=== PATIENT | male | born 1960 | race Caucasian/White ===

== ENCOUNTER 2023-08-05 17:29 | Inpatient (IN) | payer OTHER, SELFPAY ==
--- NOTE | ~2023-08-05 | CT_ITS ---
EXAMINATION: CT guide absc cath placement DATE: 08/09/2023 14:31 INDICATION: Peritoneal abscess TECHNIQUE: The procedure including the risks and benefits was discussed with the patient. Risks discu ssed included bleeding and infection. The patient understood the risks and benefits and agreed to pro ceed. The patient was confirmed to be receiving appropriate antibiotic coverage. The skin overlying the infraumbilical abdomen was prepped and draped in usual sterile fashion. An initial microsoft dynamics ax consultant CT was o btained following administration of 100 mL with Omnipaque-350 intravenous contrast to more clearly de lineate the margins of the fluid collection and the location of the bowels. Anesthetic was administer ed with 1% lidocaine subcutaneously. An 18-gauge trochar needle was inserted into the peritoneal flui d collection utilizing CT guidance. The inner stylette was removed and a J-wire advanced through the needle into the fluid collection with position confirmed by CT. Utilizing Seldinger technique the nee dle was removed over the wire and the tract serially dilated to 10 [place]. A 10 [place] pigtail cathet er was advanced over the wire into the fluid collection in the loop formed and locked with position c onfirmed by CT. The catheter was stitched to the skin with suture. Antibiotic appointment and a steri le dressing were applied. An additional adhesive fixation device was applied. There were no immediate complications. The dose-length product was 236.76 mGy-cm. FINDINGS: CT images demonstrate the catheter within the abscess within the central pelvis. Proximally 40 mL of opaque conley foul-smelling purulent fluid was aspirated for testing. The catheter was then at tached to suction drainage and was draining additional small amount of . Appearing fluid at the concl usion of the procedure IMPRESSION: 1. Successful CT-guided abscess drainage. 2. 40 mL fluid was sent for aerobic and anaerobic cultures. 3. The catheter will be managed by Dr. Santoyo. Reviewed, dictated and finalized at location A.
--- NOTE | ~2023-08-05 | CT_ITS ---
EXAMINATION: CT abdomen pelvis w con DATE: 08/06/2023 01:02 INDICATION: Abdomen pain. TECHNIQUE: Computed tomography (CT) of the abdomen and pelvis was performed with 100 cc Omnipaque 350 intravenous contrast. The dose-length product was 227.18 mGy-cm. Automated exposure control and iter ative reconstruction technique were employed. COMPARISON: None. FINDINGS: Lung bases are unremarkable. Heart size normal. No significant pleural or pericardial effus ion. There is hepatomegaly. The liver, spleen, pancreas, adrenal glands are unremarkable. Small subce ntimeter cyst of the right kidney. There is nonobstructing 7 mm left nephrolithiasis. No hydronephros is. There is atherosclerosis of the aorta without aneurysm. There is thickening of the sigmoid colon with surrounding inflammation and peridiverticular abscess measuring 4.4 cm. No acute osseous abnorma lity. Levoscoliosis. No free air. IMPRESSION: 1. Acute sigmoid diverticulitis with 4.4 cm peridiverticular abscess. Reviewed, dictated and finalized at location A.
[2023-08-05 18:02] VITALS: BP 112/71; PULSE 80; RESP 16; TEMP 36.4; O2SAT 98
[2023-08-05 18:30] LABS: Basophils Absolute Auto 0.1 K/mm3 (0.0-0.1); Basophils Percent Auto 0.4 % (0.2-1.2); Eosinophils Absolute Auto 0.1 K/mm3 (0-0.3); Eosinophils Percent Auto 0.3 % (0-4.4); Hematocrit 43.8 % (42.0-52.0); Hemoglobin 14.5 g/dL (14.0-18.0); Immature Granulocyte Percent A 1.2 % (0-0.5); Lymphocytes Absolute Auto 1.92 K/mm3 (0.9-3.2); Lymphocytes Percent Auto 11.3 % (18.3-44.2); Mean Corpuscular HGB Conc 33.1 g/dl (32-36); Mean Corpuscular Hemoglobin 31.7 pg (26-34); Mean Corpuscular Volume 95.8 fl (80-100); Monocytes Absolute Auto 2.7 K/mm3 (0.1-0.6); Monocytes Percent Auto 16.1 % (2.6-8.5); Neutrophils Percent Auto 70.7 % (45.5-73.1); Platelet Count Result 509 k/mm3 (150-375); Red Blood Count 4.57 M/mm3 (4.6-6.20); Red Cell Distribution Width 12.5 % (11.5-14.5)
[2023-08-05 18:45] LABS: Alanine Aminotransferase 20 U/L (6-50); Albumin Level 4.2 g/dL (3.5-5.1); Alkaline Phosphatase 82 U/L (38-126); Anion Gap 13 mmol/L (8-16); Aspartate Amino Transferase 39 U/L (17-59); Bilirubin,Total 0.9 mg/dL (0.2-1.3); Blood Urea Nitrogen 10 mg/dL (9-20); Calcium 8.8 mg/dL (8.4-10.2); Carbon Dioxide 21 mmol/L (22-30); Chloride 97 mmol/L (98-107); Estimated CRCL calculation 81 ml/min; Estimated Glomerular Filt Rate > 60; Glucose 95 mg/dL (65-110); Lipase 31 U/L (23-300); Potassium 4.1 mmol/L (3.4-5.0); Sodium 131 mmol/L (137-145)
[2023-08-05 23:49] VITALS: BP 136/79; PULSE 79; RESP 16; O2SAT 97
[2023-08-06] VITALS (11 sets, daily range): BP systolic 119–151; BP diastolic 59–82; PULSE 69–82; RESP 15–20; TEMP 36.6–36.9; O2SAT 93–100; BMI 18.6
[2023-08-06] MEDS: ONDANSETRON INJ 4 MG/2 ML VIAL IV PUSH (00:35)
[2023-08-06] MEDS: SODIUM CHLORIDE 0.9% IV 1,000 ML 999 ML IV CONT (00:35)
[2023-08-06] MEDS: MORPHINE SULFATE (*CRX) 4 MG/ML INJ IV PUSH (00:42)
[2023-08-06 01:21] LABS: Appearance Urine Cloudy (Clear); Bacteria Urine None Seen /hpf; Bilirubin Urine Negative (Negative); Blood Urine Negative (Negative); Color Urine Yellow (Yellow); Glucose Urine UA Negative (Negative); Ketones Urine Trace mg/dL (Negative); Leukocyte Esterase Ur Negative LEU/UL (Negative); Nitrate Urine Negative (Negative); Non Pathogenic Casts 0-2; Protein Urine Negative (Negative); RBC Urine 0-2 /hpf (0-2); Squamous Epithelial Cell Urine None seen /hpf (Few); WBC Urine 0-5 /hpf
[2023-08-06 01:30] LABS: Add Urine Microscopic? YES; Specific Grav Ur 1.039 (1.001-1.035)
--- NOTE | 2023-08-06 02:19 | ED.GENADULT ---
HPI - General Adult General Chief complaint: Abdominal Pain Stated complaint: abdominal pain Time Seen by Provider: 08/06/23 00:09 History of Present Illness HPI narrative: Patient is 61-year-old gentleman who presents the emergency department with chief complaint of abdominal pain. Patient reports that he was diagnosed with COVID-19 approximately 1 week ago and then has been having diarrhea. The patient reports that he started having pain in his abdomen and it has not improved since then. Patient reports that he is no longer having fevers but reports his abdomen is exquisitely uncomfortable and not improved by anything. Related Data Allergies Allergy/AdvReac Type Severity Reaction Status Date / Time No Known Allergies Allergy Verified 08/06/23 00:34 Review of Systems Review of Systems: A 10 system review of systems was completed on the patient and is negative except for what is stated in the HPI. Nursing and ancillary documentation was reviewed. Exam Narrative: GENERAL: Well-appearing, well-nourished, and in no acute distress. HEAD: Normocephalic, atraumatic. EYES: PERRLA and EOMI. ENT: Nares clear, no rhinorrhea or epistaxis. Mucous membranes moist. NECK: Supple. CHEST: Clear to auscultation. No respiratory distress. HEART: Regular rate and rhythm. No murmur heard. Normal peripheral pulses. ABDOMEN: Soft, diffusely tender to palpation, nondistended, normal active bowel sounds. EXTREMITIES: Normal range of motion. No edema. SKIN: Warm, dry, no rash. NEURO: No focal deficits. Alert and oriented x3. PSYCH: Normal mood and affect. Course Vital Signs Vital signs: Vital Signs Temperature 36.4 C 08/05/23 18:02 Pulse Rate 80 08/05/23 18:02 Respiratory Rate 16 08/05/23 18:02 Blood Pressure 112/71 08/05/23 18:02 Pulse Oximetry 98 08/05/23 18:02 Oxygen Delivery Room Air 08/05/23 18:02 Temperature 36.4 C 08/05/23 18:02 Pulse Rate 82 08/06/23 04:10 Respiratory Rate 15 08/06/23 04:10 Blood Pressure 147/82 H 08/06/23 04:10 Pulse Oximetry 93 08/06/23 04:10 Oxygen Delivery Room Air 08/05/23 18:02 Medical Decision Making [facility] Narrative Medical decision making narrative: Differential diagnosis includes diverticulitis, perforation, colitis, intra-abdominal infection Oratory studies were obtained showed a white count of 17,000 Electrolytes were within normal limits urinalysis showed no evidence of UTI CT scan showed evidence of diverticulitis with a sigmoid diverticular abscess versus contained perforation about 4 cm in size. The case was discussed with Dr. Breaux of surgery who will consult and recommend admission to the hospitalist service and starting the patient on Zosyn and Flagyl Vital Signs Vital Signs: Vital Signs Temperature 36.4 C 08/05/23 18:02 Pulse Rate 80 08/05/23 18:02 Respiratory Rate 16 08/05/23 18:02 Blood Pressure 112/71 08/05/23 18:02 Pulse Oximetry 98 08/05/23 18:02 Oxygen Delivery Room Air 08/05/23 18:02 Temperature 36.4 C 08/05/23 18:02 Pulse Rate 82 08/06/23 04:10 Respiratory Rate 15 08/06/23 04:10 Blood Pressure 147/82 H 08/06/23 04:10 Pulse Oximetry 93 08/06/23 04:10 Oxygen Delivery Room Air 08/05/23 18:02 Lab Data 08/05/23 18:10 08/05/23 18:10 Labs: Lab Results 08/05/23 08/06/23 Range/Units 18:10 01:11 WBC 17.0 H (4.5-10.0) K/mm3 RBC 4.57 L (4.6-6.20) M/mm3 Hgb 14.5 (14.0-18.0) g/dL Hct 43.8 (42.0-52.0) % MCV 95.8 (80-100) fl MCH 31.7 (26-34) pg MCHC 33.1 (32-36) g/dl RDW 12.5 (11.5-14.5) % Plt Count 509 H (150-375) k/mm3 MPV 10.0 (7.4-10.4) fl Immature Gran % (Auto) 1.2 H (0-0.5) % Neut % (Auto) 70.7 (45.5-73.1) % Lymph % (Auto) 11.3 L (18.3-44.2) % [place] % (Auto) 16.1 H (2.6-8.5) % Eos % (Auto) 0.3 (0-4.4) % Baso % (Auto) 0.4 (0.2-1.2) % Lymph # (Auto) 1.92 (0.9-3.2) K
[2023-08-06] MEDS: HYDROmorphone HCL INJ (*CRX) 1 MG/ML SYR IV PUSH ×2 (03:52→10:26)
[2023-08-06] MEDS: metroNIDAZOLE 500 MG/ISO 100ML 500 MG/100 ML BAG 100 MG IVPB ×4 (05:03→22:26)
[2023-08-06] MEDS: PIPERACILLN/TAZ 3.375GM/NS50ML 3.375 GM/50 ML BAG IVPB ×4 (05:09→21:21)
--- NOTE | 2023-08-06 06:11 | ADMGEN ---
This patient, Juan Pablo Araya, was admitted to Medical Room 250-01. Patient/family oriented to hospital policies and general routines including ID bracelet, bed and alarms, visiting hours, pain management, procedures, bathroom and other care routines, personal items, smoking policy, room service/diet, and visiting hours. Information on how to activate the Rapid Response Team has been discussed. Patient/Family are encouraged to report perceived risks to care and to ask questions if they do not understand what they are told or what they should do.
[2023-08-06] MEDS: SODIUM CHLORIDE 0.9% IV 1,000 ML 125 ML IV CONT ×2 (06:30→16:24)
--- NOTE | 2023-08-06 07:41 | PM.IMHP ---
H&P: HPI History of Present Illness Date/Time: 08/06/23 07:41 Chief Complaint: Abdominal pain Narrative: HPI Narrative: This is a 61-year-old male presented to the ER with chief complaint of abdominal pain. patient reported that he was diagnosed with COVID 18 approximately 1 week ago and then started having diarrhea. Patient presented with worsening abdominal pain. Hospital workup included a CT of his abdomen pelvis which shown acute sigmoid diverticulitis with a 4.4 cm peridiverticular abscess. Blood cultures were obtained and are pending. General surgery was consulted for the abscess. Patient was started on Flagyl and Zosyn IV. Urinalysis shown trace ketones otherwise grossly normal. On examination today patient was alert to voice and oriented x4. He denies any acute pain right now. Vital signs have been stable, patient is on room air, he has been afebrile. he denies any new complaints today. Labs today revealed a white blood cell count is 17.0, hemoglobin 14.5, hematocrit 43.8, sodium 131, chloride 97, potassium 4.1, carbon dioxide 21, anion gap is 13, BUN 10, creatinine 0.7. Liver enzymes were normal. Patient denies any nausea, vomiting, diarrhea, abdominal pain, body aches, fever, chills, shortness of breath, chest pain. He does report bloating. General surgery seen patient today and will discuss with the radiologist and see if the abscess is able to be drain via CT guided percutaneous drainage. He will remain NPO for continued bowel rest per General surgery note. Review of Systems Review of Systems: All systems reviewed & are unremarkable except as noted in HPI and below Constitutional: Constitutional: Reports as per HPI and Reports no additional constitutional complaints Eyes: Eyes: Reports as per HPI and Reports no additional eye complaints ENT: Reports system reviewed and no additional complaints, except as documented and Reports as per HPI Cardiovascular: Cardiovascular: Reports as per HPI and Reports no additional cardiovascular complaints Respiratory: Respiratory: Reports as per HPI and Reports no additional respiratory complaints Gastrointestinal: Gastrointestinal: Reports as per HPI and Reports no additional gastrointestinal complaints Genitourinary: Genitourinary: Reports no additional male genitourinary complaints and Reports as per HPI Musculoskeletal: Musculoskeletal: Reports no additional musculoskeletal complaints and Reports as per HPI Integumentary/Breasts: Skin/Breast: Reports system reviewed and no additional complaints, except as docu and Reports as per HPI Neurologic: Reports system reviewed and no additional complaints, except as documented and Reports as per HPI Psychiatric: Psychiatric: Reports no additional psychiatric complaints and Reports as per HPI [facility] Family History Family History Father Spinal cord tumor Mother Stented coronary artery History of intestine removal Diverticulitis Social History Social History Smoking packs per day: 1.5 Smoking cigarettes per day: 30.0 Smoking status: Current every day smoker Alcohol intake: current Drinks per week: 12 Substance use: never Lack of Transportation: No Lack of Food: Never True Current Housing: I Have Housing Concerned About Future Housing: No Difficulty Paying Gas/Electric Bills: No Difficulty Paying for Meds: No Currently Unemployed: No Education: Associate Degree Difficulty w/ Childcare or Family Care: No Spiritual care concerns: No Meds Home Medications and Allergies Home Medications Medication Instructions Recorded Confirmed Type simvastatin 20 mg tablet 20 mg PO DAILY 08/06/23 08/06/23 History Allergies Allergy/AdvReac Type Severity Reaction Status Date / Time No Known Allergies Allergy Verified 08/06/23 00:34 Vital Signs Vital Signs - 24 hr
[2023-08-06 08:35] LABS: Basophils Absolute Auto 0.1 K/mm3 (0.0-0.1); Basophils Percent Auto 0.7 % (0.2-1.2); Eosinophils Absolute Auto 0.2 K/mm3 (0-0.3); Eosinophils Percent Auto 1.2 % (0-4.4); Hematocrit 41.4 % (42.0-52.0); Hemoglobin 13.6 g/dL (14.0-18.0); Immature Granulocyte Absolute 0.15 K/mm3 (0.00-0.031); Immature Granulocyte Percent A 1.1 % (0-0.5); Lymphocytes Absolute Auto 1.68 K/mm3 (0.9-3.2); Lymphocytes Percent Auto 12.8 % (18.3-44.2); Mean Corpuscular HGB Conc 32.9 g/dl (32-36); Mean Corpuscular Hemoglobin 31.8 pg (26-34); Mean Corpuscular Volume 96.7 fl (80-100); Mean Platelet Volume 9.8 fl (7.4-10.4); Monocytes Percent Auto 15.4 % (2.6-8.5); Neutrophils Percent Auto 68.8 % (45.5-73.1); Platelet Count Result 477 k/mm3 (150-375); Red Blood Count 4.28 M/mm3 (4.6-6.20); Red Cell Distribution Width 12.3 % (11.5-14.5); White Blood Count 13.1 K/mm3 (4.5-10.0)
[2023-08-06 08:46] LABS: Alanine Aminotransferase 16 U/L (6-50); Albumin Level 3.5 g/dL (3.5-5.1); Alkaline Phosphatase 64 U/L (38-126); Anion Gap 6 mmol/L (8-16); Aspartate Amino Transferase 16 U/L (17-59); Blood Urea Nitrogen 10 mg/dL (9-20); Calcium 7.9 mg/dL (8.4-10.2); Carbon Dioxide 23 mmol/L (22-30); Chloride 101 mmol/L (98-107); Estimated CRCL calculation 78 ml/min; Estimated Glomerular Filt Rate > 60; Glucose 85 mg/dL (65-110); Magnesium 2.3 mg/dL (1.6-2.3); Phosphorus 3.7 mg/dL (2.5-4.5); Potassium 4.2 mmol/L (3.4-5.0); Sodium 130 mmol/L (137-145)
--- NOTE | 2023-08-06 13:50 | WPDCN ---
Assessment and Plan Assessment and plan (1) Acute diverticulitis: Code(s): K57.92 - Diverticulitis of intestine, part unspecified, without perforation or abscess without bleeding Status: Acute Assessment and Plan: Patient has been in the hospital with sigmoid diverticulitis. Has been started on Zosyn and Flagyl for IV antibiotic therapy. We will keep an relative bowel rest for now. White blood cell count is decreased since admission due to the IV antibiotics. Supportive management for now and hopefully this will resolve with nonoperative management. (2) Colonic diverticular abscess: Code(s): K57.20 - Diverticulitis of large intestine with perforation and abscess without bleeding Status: Acute Assessment and Plan: We will review the CT scan with the radiologist and see if the abscess is amenable to CT-guided percutaneous drainage. HPI Data of Consult Date/Time: 08/06/23 13:50 Requesting Physician: Betty Rose MD Primary Care Provider: Jus TonyMD Consult Narrative Reason for consult: Sigmoid diverticulitis with pelvic abscess Narrative: Juan Pablo Araya is a 63 year old male who was admitted through the emergency room to the floor yesterday complaining of lower abdominal pain. He apparently was diagnosed with COVID about a week ago I have been having some diarrhea. The diarrhea had been nonbloody. Workup in the emergency room included a CBC which showed elevated white blood count 72387. Repeat white blood cell count today showed a decreased down to 13,000. he was started on IV antibiotics with a CT scan showed evidence of sigmoid diverticulitis with a 4.4cm perisigmoid pelvic abscess. Patient states he has had at least 1 other episode of diverticulitis over 10 years ago but cannot remember he was admitted to the hospital. He has not had a previous surgery for diverticulitis. His last colonoscopy was in 2014 and at that time there was some polyps but no diagnosis of cancer. Review of Systems Review of Systems: Risks, benefits, indications, and expected outcomes were discussed with the patient and/or family members. Specific risks to include bleeding and possible need for blood transfusion, infection, bile leak, injury to other organs, common bile duct injury, and conversion to open cholecystectomy has been discussed. I have answered all their questions and they agreed to proceed with surgery as outlined above. [facility] Family History Family History Father Spinal cord tumor Mother Stented coronary artery History of intestine removal Diverticulitis Social History Social History Smoking packs per day: 1.5 Smoking cigarettes per day: 30.0 Smoking status: Current every day smoker Alcohol intake: current Drinks per week: 12 Substance use: never Lack of Transportation: No Lack of Food: Never True Current Housing: I Have Housing Concerned About Future Housing: No Difficulty Paying Gas/Electric Bills: No Difficulty Paying for Meds: No Currently Unemployed: No Education: Associate Degree Difficulty w/ Childcare or Family Care: No Spiritual care concerns: No Meds Home Medications and Allergies Home Medications Medication Instructions Recorded Confirmed Type simvastatin 20 mg tablet 20 mg PO DAILY 08/06/23 08/06/23 History Allergies Allergy/AdvReac Type Severity Reaction Status Date / Time No Known Allergies Allergy Verified 08/06/23 00:34 Vital Signs Vital Signs - 24 hr 08/05/23 18:02 08/05/23 23:49 08/06/23 00:44 Temperature 36.4 C Pulse Rate 80 79 76 Respiratory Rate 16 16 20 Blood Pressure 112/71 136/79 142/75 H Pulse Oximetry 98 97 96 Oxygen Delivery Room Air 08/06/23 00:01 08/06/23 00:16 08/06/23 00:43 Temperature Pulse Rate Respiratory Rate Blood Pressure 124/74
[2023-08-06] MEDS: FAMOTIDINE 20 MG/2 ML VIAL IV PUSH (20:12)
[2023-08-06] MEDS: DEXTROSE 5%/LACTATED RINGERS 1,000 ML 100 ML IV CONT (21:31)
[2023-08-07] MEDS: HYDROmorphone HCL INJ (*CRX) 1 MG/ML SYR IV PUSH (01:30)
[2023-08-07] MEDS: PIPERACILLN/TAZ 3.375GM/NS50ML 3.375 GM/50 ML BAG IVPB ×4 (03:33→21:16)
[2023-08-07] MEDS: metroNIDAZOLE 500 MG/ISO 100ML 500 MG/100 ML BAG 100 MG IVPB ×4 (04:43→22:04)
[2023-08-07 05:31] LABS: Basophils Absolute Auto 0.1 K/mm3 (0.0-0.1); Basophils Percent Auto 0.8 % (0.2-1.2); Eosinophils Absolute Auto 0.2 K/mm3 (0-0.3); Eosinophils Percent Auto 1.5 % (0-4.4); Hematocrit 40.4 % (42.0-52.0); Hemoglobin 13.3 g/dL (14.0-18.0); Immature Granulocyte Absolute 0.13 K/mm3 (0.00-0.031); Lymphocytes Absolute Auto 1.87 K/mm3 (0.9-3.2); Lymphocytes Percent Auto 13.8 % (18.3-44.2); Mean Corpuscular HGB Conc 32.9 g/dl (32-36); Mean Corpuscular Hemoglobin 31.7 pg (26-34); Mean Corpuscular Volume 96.2 fl (80-100); Mean Platelet Volume 9.9 fl (7.4-10.4); Monocytes Absolute Auto 1.9 K/mm3 (0.1-0.6); Neutrophils Absolute Auto 9.4 K/mm3 (1.3-6.7); Neutrophils Percent Auto 68.9 % (45.5-73.1); Platelet Count Result 514 k/mm3 (150-375); Red Cell Distribution Width 12.2 % (11.5-14.5); White Blood Count 13.6 K/mm3 (4.5-10.0)
[2023-08-07 05:38] LABS: INR 1.1; Prothrombin Time 14.4 Seconds (11.1-14.7)
[2023-08-07 05:40] VITALS: BP 137/62; PULSE 62; RESP 16; TEMP 36.9; O2SAT 95
[2023-08-07 05:54] LABS: Alanine Aminotransferase 14 U/L (6-50); Albumin Level 3.2 g/dL (3.5-5.1); Alkaline Phosphatase 60 U/L (38-126); Anion Gap 6 mmol/L (8-16); Aspartate Amino Transferase 20 U/L (17-59); Bilirubin,Total 0.8 mg/dL (0.2-1.3); Blood Urea Nitrogen 9 mg/dL (9-20); Calcium 8.1 mg/dL (8.4-10.2); Carbon Dioxide 25 mmol/L (22-30); Chloride 99 mmol/L (98-107); Estimated CRCL calculation 78 ml/min; Estimated Glomerular Filt Rate > 60; Glucose 88 mg/dL (65-110); Potassium 3.6 mmol/L (3.4-5.0); Sodium 130 mmol/L (137-145)
[2023-08-07] MEDS: FAMOTIDINE 20 MG/2 ML VIAL IV PUSH ×2 (09:49→20:43)
[2023-08-07] MEDS: DEXTROSE 5%/LACTATED RINGERS 1,000 ML 100 ML IV CONT ×2 (10:24→20:43)
--- NOTE | 2023-08-07 10:56 | PM.PNGS ---
Progress Note: A&P Assessment and Plan (1) Colonic diverticular abscess: Code(s): K57.20 - Diverticulitis of large intestine with perforation and abscess without bleeding Status: Acute Assessment and Plan: Reviewed CT scan with radiologist today. Interventional radiologist will not be here till tomorrow. Will review CT with radiologist tomorrow to see if the pelvic abscesses accessible to percutaneous drainage by CT guidance. (2) Acute diverticulitis: Code(s): K57.92 - Diverticulitis of intestine, part unspecified, without perforation or abscess without bleeding Status: Acute Assessment and Plan: Clinically appears to be improving today. White blood cell count is stable and his tenderness is less on exam. Continue IV antibiotics for now. Can go ahead and start some clear liquids. Subjective Subjective Date/Time Seen: 08/07/23 10:56 Interval history: Patient is improved today. Still having some left lower quadrant abdominal pain but improved since yesterday. White blood cell count is stable at about 13,000. No fever. Patient is passing flatus but not had any bowel movements yet. Exam Const: General: comfortable and no acute distress Resp: Effort & Inspection: normal respiratory effort Auscultation: clear to auscultation bilaterally Cardio: Rate: regular rate Rhythm: regular rhythm GI: Other: Abdomen is soft and nondistended. Mild tenderness to palpation left lower quadrant. No rebound. Psych: Mental Status: mental status grossly normal Affect: normal affect Objective Data Vital Signs Vital Signs: Vital Signs - 24 hr 08/06/23 14:00 08/06/23 22:00 08/07/23 05:40 Temperature 36.6 C 36.7 C 36.9 C Pulse Rate 70 71 62 Respiratory Rate 16 16 16 Blood Pressure 151/72 H 143/65 H 137/62 Pulse Oximetry 98 95 95 Intake/Output Intake/Output: Intake & Output 08/04/23 08/05/23 08/06/23 08/07/23 23:59 23:59 23:59 23:59 Intake Total 2900 1200 Output Total 600 Balance 2300 1200 Meds/Results Medications: Active Medications Generic Name Dose Route Start Last Admin Trade Name Freq PRN Reason Stop Dose Admin Acetaminophen 650 mg 08/06/23 04:38 Acetaminophen 325 Mg Tablet PO Q4H PRN Mild Pain (1-3) or Fever Famotidine 20 mg 08/06/23 21:00 08/07/23 09:49 Famotidine 20 Mg/2 Ml Vial IV PUSH 20 mg Q12HR CRISTINA Administration Hydromorphone HCl 1 mg 08/06/23 04:38 08/07/23 01:30 Hydromorphone Hcl Inj (*Crx) 1 Mg/Ml Syr IV PUSH 1 mg Q4H PRN Administration Pain Rated 7-10 Piperacillin/Tazobactam/Dextrose 3.375 gm in 50 mls @ 100 mls/hr 08/06/23 10:00 08/07/23 09:49 Zosyn 3.375 Gm/Ns 50 Ml IVPB 100 mls/hr Q6H CRISTINA Administration Metronidazole 500 mg in 100 mls @ 100 mls/hr 08/06/23 11:00 08/07/23 10:24 Flagyl 500 Mg/Iso Soln 100 Ml IVPB 100 mls/hr Q6H CRISTINA Administration Dextrose/Lactated Ringer's 1,000 mls @ 100 mls/hr 08/06/23 20:25 08/07/23 10:24 Dextrose 5%/Lactated Ringers IV CONT 100 mls/hr .Q10H CRISTINA Administration Ondansetron HCl 4 mg 08/06/23 04:38 Ondansetron Inj 4 Mg/2 Ml Vial IV PUSH Q4H PRN Nausea Radiology Results: ITS Impressions Abdomen/Pelvis CT 08/06/23 06:56 IMPRESSION: 1. Acute sigmoid diverticulitis with 4.4 cm peridiverticular abscess. Labs Labs: Laboratory Results - last 24 hr 08/07/23 05:02 WBC 13.6 H RBC 4.20 L Hgb 13.3 L Hct 40.4 L MCV 96.2 MCH 31.7 MCHC 32.9 RDW 12.2 Plt Count 514 H MPV 9.9 Immature Gran % (Auto) 1.0 H Neut % (Auto) 68.9 Lymph % (Auto) 13.8 L [place] % (Auto) 14.0 H Eos % (Auto) 1.5 Baso % (Auto) 0.8 Lymph # (Auto) 1.87 [place] # (Auto) 1.9 H Eos # (Auto) 0.2 Baso # (Auto) 0.1 Abs Immat Gran (auto) 0.13 H Absolute Neuts (auto) 9.4 H Absolute Nucleated RBC 0.0 Nucleated RBC % 0.0 PT 14.4 INR 1.1 Sodium 130 L Potassium 3.6 Chloride 99 Carbon Dioxide 25 Anion
--- NOTE | 2023-08-07 14:57 | PM.IMPN ---
Progress Note: A&P Assessment and Plan (1) Acute diverticulitis: Code(s): K57.92 - Diverticulitis of intestine, part unspecified, without perforation or abscess without bleeding Status: Acute Assessment and Plan: 08/06/23: CT of the abdomen pelvis revealed acute sigmoid diverticulitis with 4.4 cm peridiverticular abscess general surgery consulted and following continue with bowel rest and NPO status white blood cell count today is 17.0 blood cultures are pending continue with Flagyl and Zosyn IV 08/07/23: Patient started on clear liquid diet per General surgery general surgery following with plan to discuss with interventional radiologist about percutaneous drainage of the abscess the CT guidance. White blood cell count 13.6 blood cultures are still pending continue with Flagyl and Zosyn IV for now (2) Abdominal pain: Code(s): R10.9 - Unspecified abdominal pain Status: Acute Assessment and Plan: 08/06/23: patient reporting diffuse abdominal pain on admission, currently well controlled continue with hydromorphone 1 mg IV push q.4 hour for pain as 1st line pain medication due to NPO status 08/07/23: pain is well controlled continue with current treatment plan (3) Colonic diverticular abscess: Code(s): K57.20 - Diverticulitis of large intestine with perforation and abscess without bleeding Status: Acute Assessment and Plan: 08/06/23: see above Time Spent With Patient Time with patient: 25 - 35 minutes Subjective Date/time seen: 08/07/23 14:57 Interval history: 08/06/23: Interval summary: This is a 61-year-old male presented to the ER with chief complaint of abdominal pain.? patient reported that he was diagnosed with COVID 18 approximately 1 week ago and then started having diarrhea. Patient presented with worsening abdominal pain.? Hospital workup included a CT of his abdomen pelvis which shown acute sigmoid diverticulitis with a 4.4 cm peridiverticular abscess.? Blood cultures were obtained and are pending.? General surgery was consulted for the abscess.? Patient was started on Flagyl and Zosyn IV.? Urinalysis shown trace ketones otherwise grossly normal.? On examination today patient was alert to voice and oriented x4.? He denies any acute pain right now.? Vital signs have been stable, patient is on room air, he has been afebrile.? he denies any new complaints today.? Labs today revealed a white blood cell count is 17.0, hemoglobin 14.5, hematocrit 43.8, sodium 131, chloride 97, potassium 4.1, carbon dioxide 21, anion gap is 13, BUN 10, creatinine 0.7.? Liver enzymes were normal.? Patient denies any nausea, vomiting, diarrhea, abdominal pain, body aches, fever, chills, shortness of breath, chest pain. He does report bloating.? General surgery seen patient today and will discuss with the radiologist and see if the abscess is able to be drain via CT guided percutaneous drainage.? He will remain NPO for continued bowel rest per? General surgery note. 08/07/23: On examination today patient is alert and oriented x4. He reports mild diffuse abdominal pain throughout the abdomen today. Vital signs have been stable, patient is on room air, he remains afebrile. patient states he slept very well last night. He has no new complaints today. Labs today revealed a white blood cell count of 13.6, RBC 4.2, hemoglobin 13.3, hematocrit 40.4, INR 1.4, sodium 130, potassium 3.6, chloride 99, BUN 9.0, creatinine 0.7, calcium 8.1, albumin 3.2. Blood cultures are still pending. Patient continues on Flagyl and Zosyn IV. General surgery is still following the patient he was started on clear liquid diet today. General surgery will consult with interventional radiologist tomorrow to see if the pelvic abscesses are accessible to percutaneous drainage by CT guidance. Review of Systems Review of Systems: All systems reviewed & are unremarkable except as noted in HPI and
[2023-08-07 15:24] VITALS: BP 151/67; PULSE 75; RESP 16; TEMP 36.4; O2SAT 95
[2023-08-07 19:25] VITALS: BP 139/67; PULSE 57; RESP 18; TEMP 36.3; O2SAT 97
[2023-08-08] MEDS: PIPERACILLN/TAZ 3.375GM/NS50ML 3.375 GM/50 ML BAG IVPB ×4 (03:37→21:01)
[2023-08-08] MEDS: metroNIDAZOLE 500 MG/ISO 100ML 500 MG/100 ML BAG 100 MG IVPB ×4 (05:00→22:28)
[2023-08-08 05:34] LABS: Basophils Absolute Auto 0.1 K/mm3 (0.0-0.1); Basophils Percent Auto 0.7 % (0.2-1.2); Eosinophils Absolute Auto 0.2 K/mm3 (0-0.3); Eosinophils Percent Auto 1.1 % (0-4.4); Hematocrit 38.1 % (42.0-52.0); Hemoglobin 12.6 g/dL (14.0-18.0); Immature Granulocyte Absolute 0.14 K/mm3 (0.00-0.031); Lymphocytes Absolute Auto 1.67 K/mm3 (0.9-3.2); Lymphocytes Percent Auto 11.4 % (18.3-44.2); Mean Corpuscular HGB Conc 33.1 g/dl (32-36); Mean Corpuscular Hemoglobin 31.7 pg (26-34); Mean Platelet Volume 9.8 fl (7.4-10.4); Monocytes Percent Auto 13.4 % (2.6-8.5); Neutrophils Absolute Auto 10.6 K/mm3 (1.3-6.7); Neutrophils Percent Auto 72.4 % (45.5-73.1); Platelet Count Result 527 k/mm3 (150-375); Red Blood Count 3.97 M/mm3 (4.6-6.20); Red Cell Distribution Width 11.9 % (11.5-14.5); White Blood Count 14.7 K/mm3 (4.5-10.0)
[2023-08-08 05:42] LABS: Alanine Aminotransferase 12 U/L (6-50); Albumin Level 3.2 g/dL (3.5-5.1); Alkaline Phosphatase 61 U/L (38-126); Anion Gap 6 mmol/L (8-16); Aspartate Amino Transferase 15 U/L (17-59); Bilirubin,Total 0.8 mg/dL (0.2-1.3); Blood Urea Nitrogen 6 mg/dL (9-20); Carbon Dioxide 27 mmol/L (22-30); Chloride 98 mmol/L (98-107); Estimated CRCL calculation 78 ml/min; Estimated Glomerular Filt Rate > 60; Glucose 96 mg/dL (65-110); Potassium 3.6 mmol/L (3.4-5.0); Sodium 131 mmol/L (137-145)
[2023-08-08 06:00] VITALS: BP 147/64; PULSE 57; RESP 18; TEMP 36.7; O2SAT 97
[2023-08-08 07:46] VITALS: BP 144/63; PULSE 53; RESP 16; TEMP 36.8; O2SAT 98
[2023-08-08 07:55] VITALS: BP 144/63; PULSE 53; RESP 16; TEMP 36.8; O2SAT 98
[2023-08-08] MEDS: FAMOTIDINE 20 MG/2 ML VIAL IV PUSH ×2 (09:14→20:07)
--- NOTE | 2023-08-08 10:06 | P.PNIM_ITS ---
Progress Note: A&P Assessment and Plan (1) Acute diverticulitis: Code(s): K57.92 - Diverticulitis of intestine, part unspecified, without perforation or abscess without bleeding Status: Acute Assessment and Plan: 08/06/23: * CT of the abdomen pelvis revealed acute sigmoid diverticulitis with 4.4 cm peridiverticular abscess * general surgery consulted and following * continue with bowel rest and NPO status * white blood cell count today is 17.0 * blood cultures are pending * continue with Flagyl and Zosyn IV 08/07/23: * Patient started on clear liquid diet per General surgery * general surgery following with plan to discuss with interventional radiologist about percutaneous drainage of the abscess the CT guidance. * White blood cell count 13.6 * blood cultures are still pending * continue with Flagyl and Zosyn IV for now 08/08/23: * Patient continues with clear liquid diet for now will defer to General surgery team for advancement * General surgery plans to discuss with interventional radiologist about percutaneous drainage of the abscess with CT guidance today. * White blood cell count today 14.7 * Blood culture still pending * Continue with Flagyl and Zosyn IV for now (2) Colonic diverticular abscess: Code(s): K57.20 - Diverticulitis of large intestine with perforation and abscess without bleeding Status: Acute Assessment and Plan: 08/06/23: * see above (3) Abdominal pain: Code(s): R10.9 - Unspecified abdominal pain Status: Acute Assessment and Plan: 08/06/23: * patient reporting diffuse abdominal pain on admission, currently well controlled * continue with hydromorphone 1 mg IV push q.4 hour for pain as 1st line pain medication due to NPO status 08/07/23: * pain is well controlled * continue with current treatment plan 08/08/23: * No change to current treatment plan Time Spent With Patient Time with patient: 25 - 35 minutes Subjective Date/time seen: 08/08/23 10:06 Interval history: 08/06/23: Interval summary: This is a 61-year-old male presented to the ER with chief complaint of abdominal pain.? patient reported that he was diagnosed with COVID 18 approximately 1 week ago and then started having diarrhea. Patient presented with worsening abdominal pain.? Hospital workup included a CT of his abdomen pelvis which shown acute sigmoid diverticulitis with a 4.4 cm peridiverticular abscess.? Blood cultures were obtained and are pending.? General surgery was consulted for the abscess.? Patient was started on Flagyl and Zosyn IV.? Urinalysis shown trace ketones othe rwise grossly normal.? On examination today patient was alert to voice and oriented x4.? He denies any acute pain right now.? Vital signs have been stable, patient is on room air, he has been afebrile.? he denies any new complaints today.? Labs today revealed a white blood cell count is 17.0, hemoglobin 14.5, hematocrit 43.8, sodium 131, chloride 97, potassium 4.1, carbon dioxide 21, anion gap is 13, BUN 10, creatinine 0.7.? Liver enzymes were normal.? Patient denies any nausea, vomiting, diarrhea, abdominal pain, body aches, fever, chills, shortness of breath, chest pain. He does report bloating.? General surgery seen patient today and will discuss with the radiologist and see if the abscess is able to be drain via CT guided percutaneous drainage.? He will remain NPO for continued bowel rest per? General surgery note. 08/07/23: On examination today patient is alert and oriented x4. He reports mild diffuse abdominal pain throughout the abdomen today. Vit
--- NOTE | 2023-08-08 10:06 | PM.IMPN ---
Progress Note: A&P Assessment and Plan (1) Acute diverticulitis: Code(s): K57.92 - Diverticulitis of intestine, part unspecified, without perforation or abscess without bleeding Status: Acute Assessment and Plan: 08/06/23: CT of the abdomen pelvis revealed acute sigmoid diverticulitis with 4.4 cm peridiverticular abscess general surgery consulted and following continue with bowel rest and NPO status white blood cell count today is 17.0 blood cultures are pending continue with Flagyl and Zosyn IV 08/07/23: Patient started on clear liquid diet per General surgery general surgery following with plan to discuss with interventional radiologist about percutaneous drainage of the abscess the CT guidance. White blood cell count 13.6 blood cultures are still pending continue with Flagyl and Zosyn IV for now 08/08/23: Patient continues with clear liquid diet for now will defer to General surgery team for advancement General surgery plans to discuss with interventional radiologist about percutaneous drainage of the abscess with CT guidance today. White blood cell count today 14.7 Blood culture still pending Continue with Flagyl and Zosyn IV for now (2) Colonic diverticular abscess: Code(s): K57.20 - Diverticulitis of large intestine with perforation and abscess without bleeding Status: Acute Assessment and Plan: 08/06/23: see above (3) Abdominal pain: Code(s): R10.9 - Unspecified abdominal pain Status: Acute Assessment and Plan: 08/06/23: patient reporting diffuse abdominal pain on admission, currently well controlled continue with hydromorphone 1 mg IV push q.4 hour for pain as 1st line pain medication due to NPO status 08/07/23: pain is well controlled continue with current treatment plan 08/08/23: No change to current treatment plan Time Spent With Patient Time with patient: 25 - 35 minutes Subjective Date/time seen: 08/08/23 10:06 Interval history: 08/06/23: Interval summary: This is a 61-year-old male presented to the ER with chief complaint of abdominal pain.? patient reported that he was diagnosed with COVID 18 approximately 1 week ago and then started having diarrhea. Patient presented with worsening abdominal pain.? Hospital workup included a CT of his abdomen pelvis which shown acute sigmoid diverticulitis with a 4.4 cm peridiverticular abscess.? Blood cultures were obtained and are pending.? General surgery was consulted for the abscess.? Patient was started on Flagyl and Zosyn IV.? Urinalysis shown trace ketones otherwise grossly normal.? On examination today patient was alert to voice and oriented x4.? He denies any acute pain right now.? Vital signs have been stable, patient is on room air, he has been afebrile.? he denies any new complaints today.? Labs today revealed a white blood cell count is 17.0, hemoglobin 14.5, hematocrit 43.8, sodium 131, chloride 97, potassium 4.1, carbon dioxide 21, anion gap is 13, BUN 10, creatinine 0.7.? Liver enzymes were normal.? Patient denies any nausea, vomiting, diarrhea, abdominal pain, body aches, fever, chills, shortness of breath, chest pain. He does report bloating.? General surgery seen patient today and will discuss with the radiologist and see if the abscess is able to be drain via CT guided percutaneous drainage.? He will remain NPO for continued bowel rest per? General surgery note. 08/07/23: On examination today patient is alert and oriented x4. He reports mild diffuse abdominal pain throughout the abdomen today. Vital signs have been stable, patient is on room air, he remains afebrile. patient states he slept very well last night. He has no new complaints today. Labs today revealed a white blood cell count of 13.6, RBC 4.2, hemoglobin 13.3, hematocrit 40.4, INR 1.4, sodium 130, potassium 3.6, chloride 99, BUN 9.0, creatinine 0.7, calcium 8.1, albumin 3.2. Blood cultures are still pe
[2023-08-08] MEDS: DEXTROSE 5%/LACTATED RINGERS 1,000 ML 100 ML IV CONT ×2 (10:10→23:39)
--- NOTE | 2023-08-08 11:48 | PM.PNGS ---
Progress Note: A&P Assessment and Plan (1) Colonic diverticular abscess: Code(s): K57.20 - Diverticulitis of large intestine with perforation and abscess without bleeding Status: Acute Assessment and Plan: Reviewed the CT scan with the interventional radiologist today. He feels the pelvic abscess is amenable to percutaneous drainage. We will make the patient NPO and plan for CT-guided percutaneous drainage in Radiology today. Continue IV antibiotics. (2) Acute diverticulitis: Code(s): K57.92 - Diverticulitis of intestine, part unspecified, without perforation or abscess without bleeding Status: Acute Assessment and Plan: His abdominal pain and tenderness continues to improve. His WBC count is up slightly to 14.7 today from 13.6 yesterday. He is afebrile. Will proceed with CT-guided percutaneous drainage in Radiology as mentioned above. Plan I have discussed the patient's case and plan of care with Dr. Santoyo. Subjective Subjective Date/Time Seen: 08/08/23 11:48 Patient reports: feels better, pain is less and afebrile Interval history: This is a 63-year-old man who presented with abdominal pain and workup showed CT evidence of diverticulitis with abscess. He has been admitted on IV antibiotics. Chart reviewed. He is seen this morning and says he is overall feeling much better. His abdominal pain continues to improve daily. He has only been taking in water as he does not like the taste of anything on a clear liquid diet. Her denies any nausea, vomiting, or bloating. No other complaints at this time. Review of Systems Review of Systems: All systems reviewed & are unremarkable except as noted in HPI and below Exam Const: General: no acute distress and awake Orientation/consciousness: patient oriented x3 GI: Inspection: non-distended GI Palp: Yes Soft to palpation, Yes Tenderness to palpation present (GI) (mild tenderness in LLQ), No Guarding due to palpation present (GI) and No Rebound tenderness present Auscultation: normal bowel sounds Objective Data Vital Signs Vital Signs: Vital Signs - 24 hr 08/07/23 15:24 08/07/23 19:25 08/08/23 06:00 Temperature 97.5 F L 97.4 F L 98.0 F Pulse Rate 75 57 L 57 L Respiratory Rate 16 18 18 Blood Pressure 151/67 H 139/67 147/64 H Pulse Oximetry 95 97 97 Oxygen Delivery 08/08/23 07:46 08/08/23 07:55 08/08/23 09:15 Temperature 98.3 F 98.3 F Pulse Rate 53 L 53 L Respiratory Rate 16 16 Blood Pressure 144/63 H 144/63 H Pulse Oximetry 98 98 Oxygen Delivery Room Air Intake/Output Intake/Output: Intake & Output 08/05/23 08/06/23 08/07/23 08/08/23 23:59 23:59 23:59 23:59 Intake Total 2900 4320 1200 Output Total 600 300 700 Balance 2300 4020 500 Meds/Results Medications: Active Medications Generic Name Dose Route Start Last Admin Trade Name Freq PRN Reason Stop Dose Admin Acetaminophen 650 mg 08/06/23 04:38 Acetaminophen 325 Mg Tablet PO Q4H PRN Mild Pain (1-3) or Fever Famotidine 20 mg 08/06/23 21:00 08/08/23 09:14 Famotidine 20 Mg/2 Ml Vial IV PUSH 20 mg Q12HR CRISTINA Administration Hydromorphone HCl 1 mg 08/06/23 04:38 08/07/23 01:30 Hydromorphone Hcl Inj (*Crx) 1 Mg/Ml Syr IV PUSH 1 mg Q4H PRN Administration Pain Rated 7-10 Piperacillin/Tazobactam/Dextrose 3.375 gm in 50 mls @ 100 mls/hr 08/06/23 10:00 08/08/23 10:41 Zosyn 3.375 Gm/Ns 50 Ml IVPB Infused Q6H CRISTINA Infusion Metronidazole 500 mg in 100 mls @ 100 mls/hr 08/06/23 11:00 08/08/23 06:00 Flagyl 500 Mg/Iso Soln 100 Ml IVPB Infused Q6H CRISTINA Infusion Dextrose/Lactated Ringer's 1,000 mls @ 100 mls/hr 08/06/23 20:25 08/08/23 10:10 Dextrose 5%/Lactated Ringers IV CONT 100 mls/hr .Q10H CRISTINA Administration Ondansetron HCl 4 mg 08/06/23 04:38 Ondansetron Inj 4 Mg/2 Ml Vial IV PUSH Q4H PRN Nausea Radiology Results: ITS Impressions Abdomen/Pelvis CT
[2023-08-08 14:12] VITALS: BP 121/61; PULSE 47; RESP 16; TEMP 36.9; O2SAT 99
[2023-08-08 14:48] VITALS: BP 128/65; PULSE 67; RESP 18; TEMP 36.8; O2SAT 97
--- NOTE | 2023-08-08 15:13 | PC.NURSE ---
Assessment, care and medications performed by Elysia BEDOYA Student RN under supervision of instructor and hospital staff. Assessment reviewed and agree with same.
[2023-08-08 20:13] VITALS: BP 149/72; PULSE 60; RESP 16; TEMP 36.9; O2SAT 97
[2023-08-09] VITALS (15 sets, daily range): BP systolic 129–170; BP diastolic 69–87; PULSE 46–63; RESP 14–18; TEMP 36–36.6; O2SAT 95–100
[2023-08-09] MEDS: PIPERACILLN/TAZ 3.375GM/NS50ML 3.375 GM/50 ML BAG IVPB ×4 (03:16→20:42)
[2023-08-09] MEDS: metroNIDAZOLE 500 MG/ISO 100ML 500 MG/100 ML BAG 100 MG IVPB ×4 (04:21→22:11)
[2023-08-09 05:42] LABS: Basophils Absolute Auto 0.1 K/mm3 (0.0-0.1); Basophils Percent Auto 0.7 % (0.2-1.2); Eosinophils Absolute Auto 0.2 K/mm3 (0-0.3); Eosinophils Percent Auto 1.5 % (0-4.4); Hematocrit 38.3 % (42.0-52.0); Hemoglobin 12.8 g/dL (14.0-18.0); Immature Granulocyte Absolute 0.09 K/mm3 (0.00-0.031); Immature Granulocyte Percent A 0.8 % (0-0.5); Lymphocytes Absolute Auto 1.52 K/mm3 (0.9-3.2); Lymphocytes Percent Auto 13.5 % (18.3-44.2); Mean Corpuscular HGB Conc 33.4 g/dl (32-36); Mean Corpuscular Hemoglobin 31.8 pg (26-34); Mean Platelet Volume 9.8 fl (7.4-10.4); Monocytes Absolute Auto 1.6 K/mm3 (0.1-0.6); Monocytes Percent Auto 14.5 % (2.6-8.5); Neutrophils Absolute Auto 7.7 K/mm3 (1.3-6.7); Platelet Count Result 506 k/mm3 (150-375); Red Blood Count 4.03 M/mm3 (4.6-6.20); Red Cell Distribution Width 11.9 % (11.5-14.5); White Blood Count 11.2 K/mm3 (4.5-10.0)
[2023-08-09 06:03] LABS: Alanine Aminotransferase 12 U/L (6-50); Albumin Level 3.1 g/dL (3.5-5.1); Alkaline Phosphatase 54 U/L (38-126); Anion Gap 4 mmol/L (8-16); Aspartate Amino Transferase 19 U/L (17-59); Bilirubin,Total 0.8 mg/dL (0.2-1.3); Blood Urea Nitrogen 6 mg/dL (9-20); Calcium 8.1 mg/dL (8.4-10.2); Carbon Dioxide 27 mmol/L (22-30); Chloride 101 mmol/L (98-107); Estimated CRCL calculation 78 ml/min; Estimated Glomerular Filt Rate > 60; Glucose 91 mg/dL (65-110); Potassium 3.6 mmol/L (3.4-5.0); Sodium 132 mmol/L (137-145)
[2023-08-09] MEDS: FAMOTIDINE 20 MG/2 ML VIAL IV PUSH ×2 (08:18→20:42)
--- NOTE | 2023-08-09 08:52 | P.PNIM_ITS ---
Progress Note: A&P Assessment and Plan (1) Acute diverticulitis: Code(s): K57.92 - Diverticulitis of intestine, part unspecified, without perforation or abscess without bleeding Status: Acute Assessment and Plan: 08/06/23: * CT of the abdomen pelvis revealed acute sigmoid diverticulitis with 4.4 cm peridiverticular abscess * general surgery consulted and following * continue with bowel rest and NPO status * white blood cell count today is 17.0 * blood cultures are pending * continue with Flagyl and Zosyn IV 08/07/23: * Patient started on clear liquid diet per General surgery * general surgery following with plan to discuss with interventional radiologist about percutaneous drainage of the abscess the CT guidance. * White blood cell count 13.6 * blood cultures are still pending * continue with Flagyl and Zosyn IV for now 08/08/23: * Patient continues with clear liquid diet for now will defer to General surgery team for advancement * General surgery plans to discuss with interventional radiologist about percutaneous drainage of the abscess with CT guidance today. * White blood cell count today 14.7 * Blood culture still pending * Continue with Flagyl and Zosyn IV for now 08/09/23: * WBC 11.2 today * Blood cultures showing no growth day 3 * Continue Flagyl and Zosyn, will discuss oral antibiotic coverage with ID pharmacist today. * General surgery following, Plan today for percutaneous drainage his pelvic abscess under CT guidance, scheduled for 1:00 p.m. today. (2) Colonic diverticular abscess: Code(s): K57.20 - Diverticulitis of large intestine with perforation and abscess without bleeding Status: Acute Assessment and Plan: 08/06/23: * see above (3) Abdominal pain: Code(s): R10.9 - Unspecified abdominal pain Status: Acute Assessment and Plan: 08/06/23: * patient reporting diffuse abdominal pain on admission, currently well controlled * continue with hydromorphone 1 mg IV push q.4 hour for pain as 1st line pain medication due to NPO status 08/07/23: * pain is well controlled * continue with current treatment plan 08/08/23: * No change to current treatment plan Time Spent With Patient Time with patient: 15 - 25 minutes Subjective Date/time seen: 08/09/23 08:52 Interval history: 08/06/23: Interval summary: This is a 61-year-old male presented to the ER with chief complaint of abdominal pain.? patient reported that he was diagnosed with COVID 18 approximately 1 week ago and then started having diarrhea. Patient presented with worsening abdominal pain.? Hospital workup included a CT of his abdomen pelvis which shown acute sigmoid diverticulitis with a 4.4 cm peridiverticular abscess.? Blood cultures were obtained and are pending.? General surgery was consulted for the abscess.? Patient was started on Flagyl and Zosyn IV.? Urinalysis shown trace ketones otherwise grossly normal.? On examination today patient was alert to voice and oriented x4.? He denies any acute pain right now.? Vital signs have been stable, patient is on room air, he has been afebrile.? he denies any new complaints today.? Labs today revealed a white blood cell count is 17.0, hemoglobin 14.5, hematocrit 43.8, sodium 131, chloride 97, potassium 4.1, carbon dioxide 21, anion gap is 13, BUN 10, creatinine 0.7.? Liver enzymes were normal.? Patient denies any nausea, vomiting, diarrhea, abdominal pain, body aches, fever, chills, shortness of breath, chest pain. He does report bloating.? General surgery seen patient today and will
--- NOTE | 2023-08-09 08:52 | PM.IMPN ---
Progress Note: A&P Assessment and Plan (1) Acute diverticulitis: Code(s): K57.92 - Diverticulitis of intestine, part unspecified, without perforation or abscess without bleeding Status: Acute Assessment and Plan: 08/06/23: CT of the abdomen pelvis revealed acute sigmoid diverticulitis with 4.4 cm peridiverticular abscess general surgery consulted and following continue with bowel rest and NPO status white blood cell count today is 17.0 blood cultures are pending continue with Flagyl and Zosyn IV 08/07/23: Patient started on clear liquid diet per General surgery general surgery following with plan to discuss with interventional radiologist about percutaneous drainage of the abscess the CT guidance. White blood cell count 13.6 blood cultures are still pending continue with Flagyl and Zosyn IV for now 08/08/23: Patient continues with clear liquid diet for now will defer to General surgery team for advancement General surgery plans to discuss with interventional radiologist about percutaneous drainage of the abscess with CT guidance today. White blood cell count today 14.7 Blood culture still pending Continue with Flagyl and Zosyn IV for now 08/09/23: WBC 11.2 today Blood cultures showing no growth day 3 Continue Flagyl and Zosyn, will discuss oral antibiotic coverage with ID pharmacist today. General surgery following, Plan today for percutaneous drainage his pelvic abscess under CT guidance, scheduled for 1:00 p.m. today. (2) Colonic diverticular abscess: Code(s): K57.20 - Diverticulitis of large intestine with perforation and abscess without bleeding Status: Acute Assessment and Plan: 08/06/23: see above (3) Abdominal pain: Code(s): R10.9 - Unspecified abdominal pain Status: Acute Assessment and Plan: 08/06/23: patient reporting diffuse abdominal pain on admission, currently well controlled continue with hydromorphone 1 mg IV push q.4 hour for pain as 1st line pain medication due to NPO status 08/07/23: pain is well controlled continue with current treatment plan 08/08/23: No change to current treatment plan Time Spent With Patient Time with patient: 15 - 25 minutes Subjective Date/time seen: 08/09/23 08:52 Interval history: 08/06/23: Interval summary: This is a 61-year-old male presented to the ER with chief complaint of abdominal pain.? patient reported that he was diagnosed with COVID 18 approximately 1 week ago and then started having diarrhea. Patient presented with worsening abdominal pain.? Hospital workup included a CT of his abdomen pelvis which shown acute sigmoid diverticulitis with a 4.4 cm peridiverticular abscess.? Blood cultures were obtained and are pending.? General surgery was consulted for the abscess.? Patient was started on Flagyl and Zosyn IV.? Urinalysis shown trace ketones otherwise grossly normal.? On examination today patient was alert to voice and oriented x4.? He denies any acute pain right now.? Vital signs have been stable, patient is on room air, he has been afebrile.? he denies any new complaints today.? Labs today revealed a white blood cell count is 17.0, hemoglobin 14.5, hematocrit 43.8, sodium 131, chloride 97, potassium 4.1, carbon dioxide 21, anion gap is 13, BUN 10, creatinine 0.7.? Liver enzymes were normal.? Patient denies any nausea, vomiting, diarrhea, abdominal pain, body aches, fever, chills, shortness of breath, chest pain. He does report bloating.? General surgery seen patient today and will discuss with the radiologist and see if the abscess is able to be drain via CT guided percutaneous drainage.? He will remain NPO for continued bowel rest per? General surgery note. 08/07/23: On examination today patient is alert and oriented x4. He reports mild diffuse abdominal pain throughout the abdomen today. Vital signs have been stable, patient is on room air, he remains afebrile. faith
--- NOTE | 2023-08-09 11:25 | PM.PNGS ---
Progress Note: A&P Assessment and Plan (1) Colonic diverticular abscess: Code(s): K57.20 - Diverticulitis of large intestine with perforation and abscess without bleeding Status: Acute Assessment and Plan: Radiology was unable to do the percutaneous drainage yesterday, therefore we will try to proceed today. Keep NPO for possible procedure. Continue IV antibiotics. Hopefully, the patient's diet can be advanced following the procedure if all goes well. (2) Acute diverticulitis: Code(s): K57.92 - Diverticulitis of intestine, part unspecified, without perforation or abscess without bleeding Status: Acute Assessment and Plan: His abdominal pain and tenderness continues to improve. His WBC count down to 11.2 today. Continue IV antibiotics and plan for percutaneous drainage today. Plan I have discussed the patient's case and plan of care with Dr. Santoyo. Subjective Subjective Date/Time Seen: 08/09/23 11:25 Patient reports: no new complaints, feels better, pain is less, tolerating liquids well, flatus, no bowel movement (since last Tuesday) and afebrile Interval history: Patient continues to improve. Reports his pain is improving daily and denies any abdominal pain at the time of my exam. No nausea, vomiting, or bloating. Yesterday, he went to CT for the percutaneous drain and [address] scanners broke down, therefore they were unable to continue with the procedure. He is currently NPO to hopefully have the procedure today. Exam Const: General: comfortable and no acute distress GI: Inspection: non-distended GI Palp: Yes Soft to palpation, No Tenderness to palpation present (GI), No Guarding due to palpation present (GI) and No Rebound tenderness present Auscultation: normal bowel sounds Objective Data Vital Signs Vital Signs: Vital Signs - 24 hr 08/08/23 14:12 08/08/23 14:48 08/08/23 20:13 Temperature 98.5 F 98.2 F 98.4 F Pulse Rate 47 L 67 60 Respiratory Rate 16 18 16 Blood Pressure 121/61 128/65 149/72 H Pulse Oximetry 99 97 97 Oxygen Delivery 08/09/23 05:24 08/09/23 08:20 Temperature 97.9 F Pulse Rate 60 Respiratory Rate 14 Blood Pressure 129/70 Pulse Oximetry 95 Oxygen Delivery Room Air Intake/Output Intake/Output: Intake & Output 08/06/23 08/07/23 08/08/23 08/09/23 23:59 23:59 23:59 23:59 Intake Total 2900 4320 2800 300 Output Total 600 300 700 650 Balance 2300 4020 2100 -350 Meds/Results Medications: Active Medications Generic Name Dose Route Start Last Admin Trade Name Freq PRN Reason Stop Dose Admin Acetaminophen 650 mg 08/06/23 04:38 Acetaminophen 325 Mg Tablet PO Q4H PRN Mild Pain (1-3) or Fever Famotidine 20 mg 08/06/23 21:00 08/09/23 08:18 Famotidine 20 Mg/2 Ml Vial IV PUSH 20 mg Q12HR CRISTINA Administration Hydromorphone HCl 1 mg 08/06/23 04:38 08/07/23 01:30 Hydromorphone Hcl Inj (*Crx) 1 Mg/Ml Syr IV PUSH 1 mg Q4H PRN Administration Pain Rated 7-10 Piperacillin/Tazobactam/Dextrose 3.375 gm in 50 mls @ 100 mls/hr 08/06/23 10:00 08/09/23 09:46 Zosyn 3.375 Gm/Ns 50 Ml IVPB 100 mls/hr Q6H CRISTINA Administration Metronidazole 500 mg in 100 mls @ 100 mls/hr 08/06/23 11:00 08/09/23 04:21 Flagyl 500 Mg/Iso Soln 100 Ml IVPB 100 mls/hr Q6H CRISTINA Administration Dextrose/Lactated Ringer's 1,000 mls @ 100 mls/hr 08/06/23 20:25 08/08/23 23:39 Dextrose 5%/Lactated Ringers IV CONT 100 mls/hr .Q10H CRISTINA Administration Ondansetron HCl 4 mg 08/06/23 04:38 Ondansetron Inj 4 Mg/2 Ml Vial IV PUSH Q4H PRN Nausea Radiology Results: ITS Impressions Abdomen/Pelvis CT 08/06/23 06:56 IMPRESSION: 1. Acute sigmoid diverticulitis with 4.4 cm peridiverticular abscess. Labs Labs: Laboratory Results - last 24 hr 08/09/23 05:23 WBC 11.2 H RBC 4.03 L Hgb 12.8 L Hct 38.3 L MCV 95.0 MCH 31.8 MCHC 33.4 RDW 11.9 Plt Count 506 H MPV 9.
--- NOTE | 2023-08-09 13:49 | WPDMODSED ---
Moderate Sedation Note-Pt Data Patient Data Diagnosis: peritoneal abscess Present Complaint: abdominal pain Procedure to be performed/Plan: percutaneous abscess drain placement Allergies Allergy/AdvReac Type Severity Reaction Status Date / Time No Known Allergies Allergy Verified 08/06/23 00:34 Home Medications Medication Instructions Recorded Confirmed Type simvastatin 20 mg tablet 20 mg PO DAILY 08/06/23 08/06/23 History Current Medications: Active Medications Acetaminophen (Acetaminophen 325 Mg Tablet) 650 mg PO Q4H PRN PRN Reason: Mild Pain (1-3) or Fever Famotidine (Famotidine 20 Mg/2 Ml Vial) 20 mg IV PUSH Q12HR [facility] Last Admin: 08/09/23 08:18 Dose: 20 mg Hydromorphone HCl (Hydromorphone Hcl Inj (*Crx) 1 Mg/Ml Syr) 1 mg IV PUSH Q4H PRN PRN Reason: Pain Rated 7-10 Last Admin: 08/07/23 01:30 Dose: 1 mg Piperacillin/Tazobactam/Dextrose (Zosyn 3.375 Gm/Ns 50 Ml) 3.375 gm in 50 mls @ 100 mls/hr IVPB Q6H [facility] Last Infusion: 08/09/23 10:16 Dose: Infused Metronidazole (Flagyl 500 Mg/Iso Soln 100 Ml) 500 mg in 100 mls @ 100 mls/hr IVPB Q6H [facility] Last Admin: 08/09/23 12:17 Dose: 100 mls/hr Dextrose/Lactated Ringer's (Dextrose 5%/Lactated Ringers) 1,000 mls @ 100 mls/hr IV CONT .Q10H [facility] Last Admin: 08/08/23 23:39 Dose: 100 mls/hr Ondansetron HCl (Ondansetron Inj 4 Mg/2 Ml Vial) 4 mg IV PUSH Q4H PRN PRN Reason: Nausea Sedation/Anesthesia: No previous sedation/anesthesia problems (including family history). [facility] Family History Family History Father Spinal cord tumor Mother Stented coronary artery History of intestine removal Diverticulitis Social History Social History Smoking packs per day: 1.5 Smoking cigarettes per day: 30.0 Smoking status: Current every day smoker Alcohol intake: current Drinks per week: 12 Substance use: never Lack of Transportation: No Lack of Food: Never True Current Housing: I Have Housing Concerned About Future Housing: No Difficulty Paying Gas/Electric Bills: No Difficulty Paying for Meds: No Currently Unemployed: No Education: Associate Degree Difficulty w/ Childcare or Family Care: No Spiritual care concerns: No Mod Sed Physical Exam Physical Exam Pre Procedural Exam: Normal: Appearance, Neck, Throat, Lungs, Heart Rate, Heart Rhythm and Abdomen (ttp lower abdomen) Hours since solid foods: 14 Hours since liquid intake: 14 Mallampati Classification: class 1 Internal Medicine - PN: Obj Da Vital Signs Vital Signs: Vital Signs - 24 hr 08/08/23 14:12 08/08/23 14:48 08/08/23 20:13 Temperature 98.5 F 98.2 F 98.4 F Pulse Rate 47 L 67 60 Respiratory Rate 16 18 16 Blood Pressure 121/61 128/65 149/72 H Pulse Oximetry 99 97 97 Oxygen Delivery 08/09/23 05:24 08/09/23 08:20 Temperature 97.9 F Pulse Rate 60 Respiratory Rate 14 Blood Pressure 129/70 Pulse Oximetry 95 Oxygen Delivery Room Air Intake/Output Intake/Output: Intake & Output 08/06/23 08/07/23 08/08/23 08/09/23 23:59 23:59 23:59 23:59 Intake Total 2900 4320 2800 450 Output Total 600 300 700 650 Balance 2300 4020 2100 -200 Meds/Results Medications: Active Medications Generic Name Dose Route Start Last Admin Trade Name Freq PRN Reason Stop Dose Admin Acetaminophen 650 mg 08/06/23 04:38 Acetaminophen 325 Mg Tablet PO Q4H PRN Mild Pain (1-3) or Fever Famotidine 20 mg 08/06/23 21:00 08/09/23 08:18 Famotidine 20 Mg/2 Ml Vial IV PUSH 20 mg Q12HR CRISTINA Administration Hydromorphone HCl 1 mg 08/06/23 04:38 08/07/23 01:30 Hydromorphone Hcl Inj (*Crx) 1 Mg/Ml Syr IV PUSH 1 mg Q4H PRN Administration Pain Rated 7-10 Piperacillin/Tazobactam/Dextrose 3.375 gm in 50 mls @ 100 mls/hr 08/06/23 10:00 08/09/23 10:16 Zosyn 3.375 Gm/Ns 50 Ml IVPB Infused Q6H CRISTINA In
[2023-08-10] MEDS: PIPERACILLN/TAZ 3.375GM/NS50ML 3.375 GM/50 ML BAG IVPB ×2 (03:54→09:41)
[2023-08-10] MEDS: metroNIDAZOLE 500 MG/ISO 100ML 500 MG/100 ML BAG 100 MG IVPB (04:30)
[2023-08-10 04:45] VITALS: BP 126/61; PULSE 60; RESP 14; TEMP 36.6; O2SAT 97
[2023-08-10 05:11] LABS: Basophils Absolute Auto 0.1 K/mm3 (0.0-0.1); Basophils Percent Auto 0.7 % (0.2-1.2); Eosinophils Absolute Auto 0.2 K/mm3 (0-0.3); Eosinophils Percent Auto 1.9 % (0-4.4); Hematocrit 38.7 % (42.0-52.0); Hemoglobin 12.7 g/dL (14.0-18.0); Immature Granulocyte Absolute 0.12 K/mm3 (0.00-0.031); Immature Granulocyte Percent A 1.3 % (0-0.5); Lymphocytes Absolute Auto 1.78 K/mm3 (0.9-3.2); Lymphocytes Percent Auto 18.6 % (18.3-44.2); Mean Corpuscular HGB Conc 32.8 g/dl (32-36); Mean Corpuscular Hemoglobin 31.4 pg (26-34); Mean Corpuscular Volume 95.6 fl (80-100); Mean Platelet Volume 9.9 fl (7.4-10.4); Monocytes Absolute Auto 1.4 K/mm3 (0.1-0.6); Monocytes Percent Auto 14.3 % (2.6-8.5); Neutrophils Absolute Auto 6.1 K/mm3 (1.3-6.7); Neutrophils Percent Auto 63.2 % (45.5-73.1); Platelet Count Result 527 k/mm3 (150-375); Red Blood Count 4.05 M/mm3 (4.6-6.20); White Blood Count 9.6 K/mm3 (4.5-10.0)
[2023-08-10 05:26] LABS: Alanine Aminotransferase 12 U/L (6-50); Albumin Level 3.2 g/dL (3.5-5.1); Alkaline Phosphatase 55 U/L (38-126); Anion Gap 9 mmol/L (8-16); Aspartate Amino Transferase 22 U/L (17-59); Bilirubin,Total 0.8 mg/dL (0.2-1.3); Blood Urea Nitrogen 7 mg/dL (9-20); Carbon Dioxide 25 mmol/L (22-30); Chloride 99 mmol/L (98-107); Estimated CRCL calculation 78 ml/min; Estimated Glomerular Filt Rate > 60; Glucose 79 mg/dL (65-110); Potassium 3.3 mmol/L (3.4-5.0); Sodium 133 mmol/L (137-145)
[2023-08-10 08:00] VITALS: PULSE 60; RESP 14; O2SAT 97
[2023-08-10] MEDS: FAMOTIDINE 20 MG/2 ML VIAL IV PUSH (09:41)
--- NOTE | 2023-08-10 12:57 | P.PNIM_ITS ---
Progress Note: A&P Assessment and Plan (1) Acute diverticulitis: Code(s): K57.92 - Diverticulitis of intestine, part unspecified, without perforation or abscess without bleeding Status: Acute Assessment and Plan: 08/06/23: * CT of the abdomen pelvis revealed acute sigmoid diverticulitis with 4.4 cm peridiverticular abscess * general surgery consulted and following * continue with bowel rest and NPO status * white blood cell count today is 17.0 * blood cultures are pending * continue with Flagyl and Zosyn IV 08/07/23: * Patient started on clear liquid diet per General surgery * general surgery following with plan to discuss with interventional radiologist about percutaneous drainage of the abscess the CT guidance. * White blood cell count 13.6 * blood cultures are still pending * continue with Flagyl and Zosyn IV for now 08/08/23: * Patient continues with clear liquid diet for now will defer to General surgery team for advancement * General surgery plans to discuss with interventional radiologist about percutaneous drainage of the abscess with CT guidance today. * White blood cell count today 14.7 * Blood culture still pending * Continue with Flagyl and Zosyn IV for now 08/10/23: * WBC 9.6 today * Blood cultures showing no growth day 4 * D/C, IV Flagyl and Zosyn and transition to PO Flaygl and Levaquin * General surgery following, will call and see about if d/c with DELONTE drain or will remove themselves prior to d/c. (2) Colonic diverticular abscess: Code(s): K57.20 - Diverticulitis of large intestine with perforation and abscess without bleeding Status: Acute Assessment and Plan: 08/06/23: * see above (3) Abdominal pain: Code(s): R10.9 - Unspecified abdominal pain Status: Acute Assessment and Plan: 08/06/23: * patient reporting diffuse abdominal pain on admission, currently well controlled * continue with hydromorphone 1 mg IV push q.4 hour for pain as 1st line pain medication due to NPO status 08/07/23: * pain is well controlled * continue with current treatment plan 08/10/23: * No change to current treatment plan Subjective Date/time seen: 08/10/23 12:57 Interval history: 08/06/23: Interval summary: This is a 61-year-old male presented to the ER with chief complaint of abdominal pain.? patient reported that he was diagnosed with COVID 18 approximately 1 week ago and then started having diarrhea. Patient presented with worsening abdominal pain.? Hospital workup included a CT of his abdomen pelvis which shown acute sigmoid diverticulitis with a 4.4 cm peridiverticular abscess.? Blood cultures were obtained and are pending.? General surgery was consulted for the abscess.? Patient was started on Flagyl and Zosyn IV.? Urinalysis shown trace ketones otherwise grossly normal.? On examination today patient was alert to voice and oriented x4.? He denies any acute pain right now.? Vital signs have been stable, patient is on room air, he has been afebrile.? he denies any new complaints today.? Labs today revealed a white blood cell count is 17.0, hemoglobin 14.5, hematocrit 43.8, sodium 131, chloride 97, potassium 4.1, carbon dioxide 21, anion gap is 13, BUN 10, creatinine 0.7.? Liver enzymes were normal.? Patient denies any nausea, vomiting, diarrhea, abdominal pain, body aches, fever, chills, shortness of breath, chest pain. He does report bloating.? General surgery seen patient today and will discuss with the radiologist and see if the abscess is able to be drain via CT guided percutaneous drainage.? He will r
--- NOTE | 2023-08-10 12:57 | PM.IMPN ---
Progress Note: A&P Assessment and Plan (1) Acute diverticulitis: Code(s): K57.92 - Diverticulitis of intestine, part unspecified, without perforation or abscess without bleeding Status: Acute Assessment and Plan: 08/06/23: CT of the abdomen pelvis revealed acute sigmoid diverticulitis with 4.4 cm peridiverticular abscess general surgery consulted and following continue with bowel rest and NPO status white blood cell count today is 17.0 blood cultures are pending continue with Flagyl and Zosyn IV 08/07/23: Patient started on clear liquid diet per General surgery general surgery following with plan to discuss with interventional radiologist about percutaneous drainage of the abscess the CT guidance. White blood cell count 13.6 blood cultures are still pending continue with Flagyl and Zosyn IV for now 08/08/23: Patient continues with clear liquid diet for now will defer to General surgery team for advancement General surgery plans to discuss with interventional radiologist about percutaneous drainage of the abscess with CT guidance today. White blood cell count today 14.7 Blood culture still pending Continue with Flagyl and Zosyn IV for now 08/10/23: WBC 9.6 today Blood cultures showing no growth day 4 D/C, IV Flagyl and Zosyn and transition to PO Flaygl and Levaquin General surgery following, will call and see about if d/c with DELONTE drain or will remove themselves prior to d/c. (2) Colonic diverticular abscess: Code(s): K57.20 - Diverticulitis of large intestine with perforation and abscess without bleeding Status: Acute Assessment and Plan: 08/06/23: see above (3) Abdominal pain: Code(s): R10.9 - Unspecified abdominal pain Status: Acute Assessment and Plan: 08/06/23: patient reporting diffuse abdominal pain on admission, currently well controlled continue with hydromorphone 1 mg IV push q.4 hour for pain as 1st line pain medication due to NPO status 08/07/23: pain is well controlled continue with current treatment plan 08/10/23: No change to current treatment plan Subjective Date/time seen: 08/10/23 12:57 Interval history: 08/06/23: Interval summary: This is a 61-year-old male presented to the ER with chief complaint of abdominal pain.? patient reported that he was diagnosed with COVID 18 approximately 1 week ago and then started having diarrhea. Patient presented with worsening abdominal pain.? Hospital workup included a CT of his abdomen pelvis which shown acute sigmoid diverticulitis with a 4.4 cm peridiverticular abscess.? Blood cultures were obtained and are pending.? General surgery was consulted for the abscess.? Patient was started on Flagyl and Zosyn IV.? Urinalysis shown trace ketones otherwise grossly normal.? On examination today patient was alert to voice and oriented x4.? He denies any acute pain right now.? Vital signs have been stable, patient is on room air, he has been afebrile.? he denies any new complaints today.? Labs today revealed a white blood cell count is 17.0, hemoglobin 14.5, hematocrit 43.8, sodium 131, chloride 97, potassium 4.1, carbon dioxide 21, anion gap is 13, BUN 10, creatinine 0.7.? Liver enzymes were normal.? Patient denies any nausea, vomiting, diarrhea, abdominal pain, body aches, fever, chills, shortness of breath, chest pain. He does report bloating.? General surgery seen patient today and will discuss with the radiologist and see if the abscess is able to be drain via CT guided percutaneous drainage.? He will remain NPO for continued bowel rest per? General surgery note. 08/07/23: On examination today patient is alert and oriented x4. He reports mild diffuse abdominal pain throughout the abdomen today. Vital signs have been stable, patient is on room air, he remains afebrile. patient states he slept very well last night. He has no new complaints today. Labs today revealed a white bloo
--- NOTE | 2023-08-10 13:28 | PM.PNGS ---
Progress Note: A&P Assessment and Plan (1) Colonic diverticular abscess: Code(s): K57.20 - Diverticulitis of large intestine with perforation and abscess without bleeding Status: Acute Assessment and Plan: Status post percutaneous drainage in Radiology yesterday. Advanced to a low-fiber diet after the procedure. Bowels are moving. White blood cell count normalized. Okay to discharge the patient from a surgical standpoint today and transition to oral antibiotics for another 10 days. We will order a CT scan of the abdomen and pelvis with IV contrast next Tuesday and have him follow-up with Dr. Santoyo the following day for possible drain removal. (2) Acute diverticulitis: Code(s): K57.92 - Diverticulitis of intestine, part unspecified, without perforation or abscess without bleeding Status: Acute Plan I have discussed the patient's case and plan of care with Dr. Santoyo. Subjective Subjective Date/Time Seen: 08/10/23 13:28 Patient reports: no new complaints, feels better, tolerating a regular diet (Low-fiber), flatus, bowel movement and afebrile Interval history: Patient doing well today. Denies any abdominal pain. He had percutaneous drainage of the pelvic abscess yesterday in Radiology. There is sanguinous drainage in the perc drain today with only 5 cc out overnight. No nausea or vomiting. White blood cell count normalized. Review of Systems Review of Systems: All systems reviewed & are unremarkable except as noted in HPI and below Exam GI: Inspection: non-distended GI Palp: Yes Soft to palpation, No Tenderness to palpation present (GI), No Guarding due to palpation present (GI) and No Rebound tenderness present Auscultation: normal bowel sounds Other: Mid lower abdominal percutaneous drain in place with dressing dry and intact with a scant amount of sanguinous drainage Objective Data Vital Signs Vital Signs: Vital Signs - 24 hr 08/09/23 14:49 08/09/23 14:00 08/09/23 14:30 Temperature 96.8 F L Pulse Rate 62 59 L 50 L Respiratory Rate 16 15 16 Blood Pressure 144/69 H 149/81 H 163/77 H Pulse Oximetry 95 98 99 Oxygen Delivery Nasal Cannula Room Air Oxygen Flow Rate 3 08/09/23 13:47 08/09/23 13:50 08/09/23 13:55 Temperature Pulse Rate 46 L 47 L 53 L Respiratory Rate 15 16 18 Blood Pressure 164/80 H 158/82 H 150/80 H Pulse Oximetry 99 100 99 Oxygen Delivery Nasal Cannula Nasal Cannula Nasal Cannula Oxygen Flow Rate 3 3 3 08/09/23 14:05 08/09/23 14:10 08/09/23 14:15 Temperature Pulse Rate 53 L 53 L 57 L Respiratory Rate 18 17 17 Blood Pressure 159/83 H 170/80 H 166/87 H Pulse Oximetry 99 98 99 Oxygen Delivery Nasal Cannula Nasal Cannula Nasal Cannula Oxygen Flow Rate 3 3 3 08/09/23 14:20 08/09/23 14:25 08/09/23 14:40 Temperature Pulse Rate 59 L 51 L 63 Respiratory Rate 17 14 16 Blood Pressure 155/87 H 146/84 H 134/80 Pulse Oximetry 97 98 96 Oxygen Delivery Nasal Cannula Nasal Cannula Room Air Oxygen Flow Rate 3 3 08/09/23 20:00 08/09/23 21:57 08/10/23 04:45 Temperature 97.9 F 97.9 F Pulse Rate 60 60 Respiratory Rate 16 14 Blood Pressure 143/70 H 126/61 Pulse Oximetry 98 97 Oxygen Delivery Room Air Oxygen Flow Rate Intake/Output Intake/Output: Intake & Output 08/07/23 08/08/23 08/09/23 08/10/23 23:59 23:59 23:59 23:59 Intake Total 4320 2800 1310 640 Output Total 348 849 4926 105 Balance 4020 2100 60 535 Meds/Results Medications: Active Medications Generic Name Dose Route Start Last Admin Trade Name Freq PRN Reason Stop Dose Admin Acetaminophen 650 mg 08/06/23 04:38 Acetaminophen 325 Mg Tablet PO Q4H PRN Mild Pain (1-3) or Fever Hydrocodone Bitart/Acetaminophen 1 tab 08/09/23 14:38 Hydrocodone/Acetaminophen (*Crx) 5-325 Mg Tablet PO Q4H PRN Pain Rated 4-6 Famotidine 20 mg 08/06/23 21:00 08/10/23 09:41 Famotidine 20 Mg/2 Ml Vial IV PUSH 20 mg Q12HR CRISTINA Admini
--- NOTE | 2023-08-10 14:15 | PM.DS ---
DS: Admitting Diagnosis Discharge Date 08/10/23 Admitting Diagnosis abdominal pain DS: Discharge Diagnosis Discharge Diagnosis (1) Acute diverticulitis: Code(s): K57.92 - Diverticulitis of intestine, part unspecified, without perforation or abscess without bleeding Status: Acute Assessment and Plan: WBC 9.6 today Blood cultures showing no growth day 4 D/C, IV Flagyl and Zosyn and transition to PO Flaygl and Levaquin General surgery following, will follow up outpatient and with Dr. Santoyo for DELONTE drain removal (2) Colonic diverticular abscess: Code(s): K57.20 - Diverticulitis of large intestine with perforation and abscess without bleeding Status: Acute Assessment and Plan: 08/06/23: see above (3) Abdominal pain: Code(s): R10.9 - Unspecified abdominal pain Status: Acute Assessment and Plan: 08/10/23: No change to current treatment plan DS: Summary Hospital Course Hospital Course: Patient alert and oriented in bed this morning, very ready to get home. He reports having an appetite but cannot eat the hospital food. VSS, patient remains afebrile, currently on room air. Labs today WBC down to 9.6, H&H stable, Na+ 131, K+ 3.3. Blood cultures showing no growth day 4. Pelvic abscess drained via CT-guided percutaneous drainage yesterday, DELONTE drain in place and sealed. He has been seen and cleared to return home by surgery. He is to follow up next Tuesday for CT with IV contrast and f/u with Dr. Santoyo the following day to remove the DELONTE drain. Will send home with DELONTE care instructions. Draining serosanguineous fluid. Denies pain, and reports having 3 bowel movements since yesterday. Mix of solid and runny stools. Will send home on 10 day course of antibiotics, Flagyl and Levaquin. Status at Discharge Functional status at discharge: independent ambulation Overall status at discharge: patient is progressing back to baseline Time Spent with Patient Time attestation: Total time spent providing and/or coordinating discharge services: Exam Narrative: GENERAL: Well-appearing, fairlyl-nourished, and in no acute distress. HEAD: Normocephalic, atraumatic. EYES: PERRLA and EOMI. ENT: ? Mucous membranes moist. NECK: Supple. No adenopathy, no JVD, trachea midline Respiratory: lungs clear to auscultation bilaterally, no acute distress, no adventitious lung sounds heard. HEART: Regular rate and rhythm. Normal S1 an S2, No murmur, gallop, friction rub heard.? Normal peripheral pulses. ABDOMEN: Soft, mild tender to palpation, nondistended with active bowel sounds. EXTREMITIES: Normal range of motion.? No edema. SKIN: Warm, dry, no rash. DELONTE drain in place and sealed appropriately. NEURO: No focal deficits.? Alert and oriented x3. PSYCH: Normal mood and affect. DS: Data Data Completed and Pending Labs on day of discharge: Labs from last 24 hours 08/10/23 04:42 WBC 9.6 RBC 4.05 L Hgb 12.7 L Hct 38.7 L MCV 95.6 MCH 31.4 MCHC 32.8 RDW 12.0 Plt Count 527 H MPV 9.9 Immature Gran % (Auto) 1.3 H Neut % (Auto) 63.2 Lymph % (Auto) 18.6 Davison % (Auto) 14.3 H Eos % (Auto) 1.9 Baso % (Auto) 0.7 Lymph # (Auto) 1.78 Davison # (Auto) 1.4 H Eos # (Auto) 0.2 Baso # (Auto) 0.1 Abs Immat Gran (auto) 0.12 H Absolute Neuts (auto) 6.1 Absolute Nucleated RBC 0.0 Nucleated RBC % 0.0 Sodium 133 L Potassium 3.3 L Chloride 99 Carbon Dioxide 25 Anion Gap 9 BUN 7 L Creatinine 0.70 Estim Creat Clear Calc 78 Estimated GFR > 60 Glucose 79 Calcium 8.0 L Total Bilirubin 0.8 AST 22 ALT 12 Alkaline Phosphatase 55 Total Protein 6.0 L Albumin 3.2 L Preliminary micro results at discharge 08/09/23 14:26 Anaerobic Culture - Preliminary Abscess 08/06/23 05:00 Blood Culture - Preliminary Blood 08/06/23 05:00 Blood Culture - Preliminary Blood Discharge Plan Discharge Attending physician on discharge: Goran Srinivasan
== END 2023-08-10 14:50 | disposition home or self-care (01) | DRG 391 ==
LOC: ANHED 08-06 04:33 → ANH2MED 08-06 05:25
PROVIDERS: Emergency Medicine; Nurse Practitioner Acute Care; Radiology Diagnostic Radiology; Surgery; Admitting Provider Internal Medicine; Emergency Provider Emergency Medicine; PCP Internal Medicine Infectious Disease; Visit Provider Nurse Practitioner
PROC: 0W9J30Z Drainage of Pelvic Cavity with Drainage Device, Percutaneous Approach (ICD-10-PCS; principal; 2023-08-09 13:30)
DX: K57.20 Diverticulitis of large intestine with perforation and abscess without bleeding (principal); U07.1 COVID-19; F17.210 Nicotine dependence, cigarettes, uncomplicated; Z23 Encounter for immunization; Z86.010 Personal history of colon polyps
CPT/HCPCS: 36415; 74177; 75989; 80053; 81001; 83690; 83735; 84100; 85025; 85610; 87040; 87070; 87075; 87077; 87186; 87205; 90471; 90686; 96361; 96365; 96366; 96367; 96375; 96376; 99285; C1729; C1769; G0008; G0378; J1170; J1836; J2270; J2405; J2543; J3010; J7030; J7040; J7121; Q9967

== ENCOUNTER → 2023-08-15 09:19 | Outpatient (CLI) | payer OTHER, SELFPAY ==
--- NOTE | ~2023-08-15 | CT_ITS ---
EXAMINATION: CT abdomen pelvis w con DATE: 08/15/2023 09:44 INDICATION: Diverticulitis TECHNIQUE: Computed tomography (CT) of the abdomen and pelvis was performed with 100 CC Omnipaque 350 intravenous contrast. Automated exposure control and iterative reconstruction technique were employe d. Exam dose: 283.49 mGy-cm total exam DLP. COMPARISON: 08/06/2023 CT abdomen pelvis FINDINGS: Lingular and bilateral lower lobe dependent discoid atelectasis, greater on the right. No c onsolidation at the lung bases. No pleural effusion or pericardial effusion. Normal heart size. There is an anterior lower abdominal percutaneous pigtail drainage catheter situated just above the u rinary bladder in the right pelvic area; there is minimal if any residual pericolic abscess. The liver, gallbladder, bile ducts, spleen, pancreas and pancreatic duct as well as adrenal glands ar e unremarkable. There is a rounded 6 mm nonobstructing left renal calculus. No other urinary tract calculus or hydrou reteronephrosis. The urinary bladder is unremarkable. There is atherosclerotic calcification but normal caliber of the abdominal aorta and iliac arteries. No intraperitoneal or retroperitoneal or pelvic mass lesion or adenopathy or ascites is noted. There is a prominent of fecal material in the colon. No intraperitoneal free air is evident. Included skeletal structures are unremarkable. IMPRESSION: Anterior lower abdominal percutaneous pigtail drainage catheter in right pelvic area abo ve the urinary bladder, with apparent interval virtually complete drainage of pericolic abscess since 08/06/2023 Reviewed, dictated and finalized at [facility]. Reviewed, dictated and finalized at [facility]. IMPRESSION: Anterior lower abdominal percutaneous pigtail drainage catheter in right pelvic area above the urinary bladder, with apparent interval virtually complete drainage of pericolic abscess since 08/06/2023
[2023-08-15 09:34] LABS: Estimated Glomerular Filt Rate > 60
== END ==
PROVIDERS: PCP Surgery; Visit Provider Surgery
DX: K57.20 Diverticulitis of large intestine with perforation and abscess without bleeding (principal)
CPT/HCPCS: 74177; Q9967